=== PATIENT | female | born 1995 | race Two or more races ===

== ENCOUNTER 2017-04-24 09:27 | Emergency (ER) | payer MEDICAID ==
[~2017-04-24] VITALS: Ht 4267.2 cm; Wt 63.5 kg
--- NOTE | 2017-04-24 10:20 | NUR ---
PATIENT WA SEEN BY MD. WISAM MALIN. RENE TAPE APPLED TO AFFECTED FINGER AND RING FINGER TOGETHER. DC AND FOLLOW UP INSTRUCTIONS GIVEN AND EXPLAINED TO PATIENT WHO STATES SHE UNDERSTANDS ALL INSTRUCTIONS.
== END 2017-04-24 10:21 | disposition home or self-care (01) ==
LOC: ER 09:27
DX: S63.632A Sprain of interphalangeal joint of right middle finger, initial encounter (principal); G43.909 Migraine, unspecified, not intractable, without status migrainosus; W01.0XXA Fall on same level from slipping, tripping and stumbling without subsequent striking against object, initial encounter; Y93.89 Activity, other specified; Y92.9 Unspecified place or not applicable; Y99.9 Unspecified external cause status
CPT/HCPCS: 73140; 99284; A4663

== ENCOUNTER 2017-10-15 01:41 | Emergency (ER) | payer MEDICAID ==
[~2017-10-15] VITALS: Ht 170.2 cm; Wt 63.5 kg
[2017-10-15] MEDS ORDERED: CEPHALEXIN MONOHYDRATE 500 MG CAPSULE PO ONE (03:00)
[2017-10-15] MEDS ORDERED: predniSONE 50 MG TABLET PO ONE (03:00)
[2017-10-15] MEDS ORDERED: CEPHALEXIN MONOHYDRATE 500 MG CAPSULE ONE (03:38)
[2017-10-15] MEDS ORDERED: predniSONE 50 MG TABLET ONE (03:38)
--- NOTE | 2017-10-15 04:01 | NUR ---
Patient discharged to home in stable conditon. Written and verbal after care instructions given WITH RX. Patient verbalizes understanding of instructions.
== END 2017-10-15 04:03 | disposition home or self-care (01) ==
LOC: ER 01:44
DX: I88.9 Nonspecific lymphadenitis, unspecified (principal); F15.10 Other stimulant abuse, uncomplicated
CPT/HCPCS: 36415; 86403; A4663; J7512

== ENCOUNTER 2017-11-22 01:16 | Emergency (ER) | payer MEDICAID ==
[~2017-11-22] VITALS: Ht 170.2 cm; Wt 63.5 kg
--- NOTE | 2017-11-22 01:40 | NUR ---
TO ROOM 5 FOR ER EVAL
--- NOTE | 2017-11-22 02:10 | NUR ---
URINE SPECIMEN OBTAINED AND SENT TO LAB
[2017-11-22 02:22] LABS: *BILIRUBIN,URIN NEGATIVE (NEGATIVE); *BLOOD, URINE Trace-intact (NEGATIVE); *CLARITY,URINE CLEAR (CLEAR); *COLOR,URINE YELLOW (YELLOW); *KETONES,URINE NEGATIVE (NEGATIVE); *PROTEIN,URINE NEGATIVE (NEGATIVE); *UROBILINOGEN,URINE 0.2 E.U./dl (NORMAL); LEUKOCYTE ESTERASE ,URINE NEGATIVE (NEGATIVE); NITRITE, URINE NEGATIVE (NEGATIVE); UGLUCOSE NEGATIVE (NEGATIVE)
[2017-11-22 02:29] LABS: WBC,URINE 0-3 /HPF (0-3)
[2017-11-22 02:30] LABS: *URINE HCG, QUAL NEGATIVE (NEGATIVE); BACTERIA,URINE FEW /HPF (NONE SEEN); SQUAMOUS EPITHELIAL CELL,UR FEW /HPF (NONE SEEN)
--- NOTE | 2017-11-22 02:48 | NUR ---
Patient discharged to home in stable conditon. Written and verbal after care instructions given. Patient verbalizes understanding of instructions. Pt left ER and walks in steady gait.
[2017-11-22 02:49] VITALS: BP 110/56
[2017-11-24 07:06] LABS: *GC NAA Negative (Negative); *TRIC.VAG. NAA Negative (Negative)
== END 2017-11-22 02:51 | disposition home or self-care (01) ==
LOC: ER 01:16
DX: N89.8 Other specified noninflammatory disorders of vagina (principal)
CPT/HCPCS: 81001; 84703; 87086; 87491; 99284; A4663

== ENCOUNTER 2017-11-26 20:20 | Emergency (ER) | payer MEDICAID ==
[~2017-11-26] VITALS: Ht 170.2 cm; Wt 63.5 kg
--- NOTE | 2017-11-26 21:30 | NUR ---
Patient discharged to home in stable conditon. Written and verbal after care instructions given. Patient verbalizes understanding of instructions. Patient reported reduced anxiety pertaining to skin infection prior to discharge. Patient able to ambulate unassisted with steady gait. Patient left with all personal belongings.
[2017-11-26 21:39] VITALS: BP 118/72
== END 2017-11-26 21:30 | disposition home or self-care (01) ==
LOC: ER 20:22
DX: L01.00 Impetigo, unspecified (principal)
CPT/HCPCS: A4663

== ENCOUNTER 2018-02-20 15:14 | Emergency (ER) | payer MEDICAID ==
[~2018-02-20] VITALS: Ht 170.2 cm; Wt 63.5 kg
--- NOTE | 2018-02-20 15:20 | NUR ---
PT IS IN ROOM #1A, WAITING FOR DR JOLLY EVALUATION.
--- NOTE | 2018-02-20 16:50 | NUR ---
PT CAME OUT OF THE ROOM AN STARTERTED TO SCREAM TO THE DR JOLLY AND NURSES. PT WAS TOLD BY DR JOLLY THAT HE IS GOING TO SEE HER NEXT. PT WENT BACK TO HER ROOM #1A.
--- NOTE | 2018-02-20 17:08 | NUR ---
DR JOLLY EVALUATED THE PT.
[2018-02-20 17:24] VITALS: BP 126/79
--- NOTE | 2018-02-20 17:24 | NUR ---
PT WAS D/C TO HOME. D/C INSTRUCTIONS GIVEN TO THE PT.
== END 2018-02-20 17:26 | disposition home or self-care (01) ==
LOC: ER 15:14
DX: R06.00 Dyspnea, unspecified (principal)
CPT/HCPCS: A4663

== ENCOUNTER 2018-04-24 14:55 | Emergency (ER) | payer MEDICAID ==
[~2018-04-24] VITALS: Ht 170.2 cm; Wt 63.5 kg
--- NOTE | 2018-04-24 16:15 | NUR ---
Patient discharged to home in stable conditon. Written and verbal after care instructions given to patient. Patient verbalizes understanding of instructions.
== END 2018-04-24 16:17 | disposition home or self-care (01) ==
LOC: ER 14:58
DX: J02.9 Acute pharyngitis, unspecified (principal)
CPT/HCPCS: A4663

== ENCOUNTER 2018-05-31 23:46 | Emergency (ER) | payer MEDICAID ==
[~2018-05-31] VITALS: Ht 170.2 cm; Wt 65.8 kg
[2018-06-01 00:15] LABS: *URINE HCG, QUAL NEGATIVE (NEGATIVE)
[2018-06-01] MEDS ORDERED: PENICILLIN G BENZATHINE 2.4 MMU/4 ML DISP.SYRIN IM ONE ×2 (00:24→00:30)
--- NOTE | 2018-06-01 00:31 | NUR ---
Patient discharged to home in stable conditon. Written and verbal after care instructions given. Patient verbalizes understanding of instructions. Pt ambulated out of ER in steady gait. All belongings with pt. VSS. NAD noted.
[2018-06-01 00:35] VITALS: BP 109/76
== END 2018-06-01 00:36 | disposition home or self-care (01) ==
LOC: ER 23:50
DX: J02.9 Acute pharyngitis, unspecified (principal)
CPT/HCPCS: 84703; A4663

== ENCOUNTER 2018-10-27 09:44 | Emergency (ER) | payer MEDICAID ==
[~2018-10-27] VITALS: Ht 170.2 cm; Wt 65.8 kg
--- NOTE | 2018-10-27 10:18 | NUR ---
pt was evaluayed by dr arias. pt was d/c'D to home. d/c instructions given to the pt.
[2018-10-27 10:20] VITALS: BP 131/77
== END 2018-10-27 10:21 | disposition home or self-care (01) ==
LOC: ER 09:44
DX: L25.9 Unspecified contact dermatitis, unspecified cause (principal)
CPT/HCPCS: A4663

== ENCOUNTER 2018-11-09 15:15 | Emergency (ER) | payer MEDICAID ==
[~2018-11-09] VITALS: Ht 170.2 cm; Wt 70.3 kg
[2018-11-09] MEDS ORDERED: CEFTRIAXONE 1 G VIAL IM ONE (15:45)
[2018-11-09] MEDS ORDERED: LIDOCAINE HCL 2% 20 ML VIAL ONE (15:53)
[2018-11-09] MEDS ORDERED: CEFTRIAXONE 1 G VIAL ONE (15:53)
--- NOTE | 2018-11-09 15:58 | NUR ---
PT WAS EVALUATED BY DR SANDHU. PT WAS MEDICATED ACCORDING TO ER MD ORDERS. PT TOLERATTED TO MEDICATION WITHOUT COMPLICATIONS. PT WAS D/C'd TO HOME. D/C INSTRUCTIONS GIVEN TO THE PT.
[2018-11-09 16:00] VITALS: BP 136/81
== END 2018-11-09 16:01 | disposition home or self-care (01) ==
LOC: ER 15:17
DX: J02.9 Acute pharyngitis, unspecified (principal)
CPT/HCPCS: 96372; 99283; J0696; J3490; A4663

== ENCOUNTER 2019-02-16 19:56 | Emergency (ER) | payer MEDICAID ==
[~2019-02-16] VITALS: Ht 170.2 cm; Wt 70.3 kg
[2019-02-16] MEDS ORDERED: [UNRECOGNIZED DRUG - CODE] PO (20:19)
[2019-02-16 20:40] LABS: *BILIRUBIN,URIN NEGATIVE (NEGATIVE); *CLARITY,URINE SLIGHTLY CLOUDY (CLEAR); *COLOR,URINE YELLOW (YELLOW); *KETONES,URINE NEGATIVE (NEGATIVE); *UROBILINOGEN,URINE 0.2 E.U./dl (NORMAL); LEUKOCYTE ESTERASE ,URINE 2+ (NEGATIVE); NITRITE, URINE NEGATIVE (NEGATIVE); PH,URINE 7.5 (5.0-8.0); UGLUCOSE NEGATIVE (NEGATIVE)
[2019-02-16 20:41] LABS: *BLOOD, URINE TRACE (NEGATIVE)
[2019-02-16 20:42] LABS: *URINE HCG, QUAL NEGATIVE (NEGATIVE)
[2019-02-16 20:46] LABS: BACTERIA,URINE MODERATE /HPF (NONE SEEN); MUCUS,URINE MANY /LPF (0-FEW); SQUAMOUS EPITHELIAL CELL,UR MODERATE /HPF (NONE SEEN); WBC,URINE 50-80 /HPF (0-3)
--- NOTE | 2019-02-16 21:12 | NUR ---
Female international sales manager (CLARITZA PALACIOS) accompanied female patient for pelvic exam.
--- NOTE | 2019-02-16 21:55 | NUR ---
Patient discharged to home in stable conditon. Written and verbal after care instructions given. Patient verbalizes understanding of instructions. WALKED OUT OF ER WITH NO DISTRESS NOTED
[2019-02-16 21:56] VITALS: BP 117/77
[2019-02-18 23:10] LABS: *GC NAA Negative (Negative); *TRIC.VAG. NAA Negative (Negative)
== END 2019-02-16 21:57 | disposition home or self-care (01) ==
LOC: ER 19:56
DX: L73.9 Follicular disorder, unspecified (principal); N39.0 Urinary tract infection, site not specified; G43.909 Migraine, unspecified, not intractable, without status migrainosus; Z79.899 Other long term (current) drug therapy
CPT/HCPCS: 84703; 87077; 87086; 87491; A4663

== ENCOUNTER 2021-01-25 22:44 | Emergency (ER) | payer MEDICAID ==
[~2021-01-25] VITALS: Ht 170.2 cm; Wt 65.8 kg
[~2021-01-25 22:44] MED LIST: [UNRECOGNIZED DRUG - CODE] PO
--- NOTE | 2021-01-25 23:11 | NUR ---
Dr. Pardo at bedside for MSE.
--- NOTE | 2021-01-25 23:12 | NUR ---
Pt provided urine sample, sent to lab.
[2021-01-25] MEDS ORDERED: ONDANSETRON ODT 4 MG TAB.RAPDIS SL ONE (23:15)
[2021-01-25] MEDS ORDERED: ONDANSETRON ODT 4 MG TAB.RAPDIS ONE (23:23)
[2021-01-25 23:24] LABS: *URINE HCG, QUAL NEG (NEGATIVE)
--- NOTE | 2021-01-25 23:32 | NUR ---
Pt out of ER for CT.
--- NOTE | 2021-01-25 23:45 | NUR ---
Pt back to ER from CT.
[2021-01-26] MEDS ORDERED: ONDA8TAB65 PO (00:19)
[2021-01-26] MEDS ORDERED: ALPR0.5T8 PO (00:19)
--- NOTE | 2021-01-26 00:28 | NUR ---
Patient discharged to home in stable condition. Written and verbal after care instructions given. Patient verbalizes understanding of instructions. Stressed follow up or return to ER for worsening s/s. Pt out of ER with steady gait, no acute signs of distress, VSS, all belongings taken, provided with copies of lab and CT results.
[2021-01-26 00:29] VITALS: BP 124/75
== END 2021-01-26 00:29 | disposition home or self-care (01) ==
LOC: ER 22:48
DX: S06.0X1A Concussion with loss of consciousness of 30 minutes or less, initial encounter (principal); R40.2142 Coma scale, eyes open, spontaneous, at arrival to emergency department; R40.2252 Coma scale, best verbal response, oriented, at arrival to emergency department; R40.2362 Coma scale, best motor response, obeys commands, at arrival to emergency department; W01.0XXA Fall on same level from slipping, tripping and stumbling without subsequent striking against object, initial encounter; Y92.481 Parking lot as the place of occurrence of the external cause; G43.909 Migraine, unspecified, not intractable, without status migrainosus
CPT/HCPCS: 70450; 84703; A4663; Q0162

== ENCOUNTER 2021-02-02 05:12 | Emergency (ER) | payer MEDICAID ==
[~2021-02-02] VITALS: Ht 170.2 cm; Wt 65.8 kg
[~2021-02-02 05:12] MED LIST changes: +ALPR0.5T8 PO; +ONDA8TAB65 PO
--- NOTE | 2021-02-02 05:20 | NUR ---
Pt. arrived from home cc sore throat past 3 days. Pt has mild cough. Denies chest pain, sob. Pt smokes marijuana daily. Pt. was also diagnosed with uti that she has been taking antibiotics for.
[2021-02-02] MEDS ORDERED: CEFTRIAXONE 1 G VIAL ONE (05:45)
[2021-02-02] MEDS ORDERED: CEFTRIAXONE 1 G VIAL IM ONE (05:45)
[2021-02-02 05:46] LABS: *BILIRUBIN,URIN NEGATIVE (NEGATIVE); *BLOOD, URINE NEGATIVE (NEGATIVE); *CLARITY,URINE SLIGHTLY CLOUDY (CLEAR); *COLOR,URINE YELLOW (YELLOW); *KETONES,URINE NEGATIVE (NEGATIVE); *UROBILINOGEN,URINE 0.2 E.U./dl (NORMAL); LEUKOCYTE ESTERASE ,URINE NEGATIVE (NEGATIVE); NITRITE, URINE NEGATIVE (NEGATIVE); UGLUCOSE NEGATIVE (NEGATIVE)
[2021-02-02] MEDS ORDERED: LIDOCAINE HCL 1% 20 ML VIAL ONE (05:47)
[2021-02-02 05:54] VITALS: BP 110/65
--- NOTE | 2021-02-02 05:55 | NUR ---
Patient discharged to home in stable condition. Written and verbal after care instructions given. Patient verbalizes understanding of instructions. Stressed follow up or return to ER for worsening s/s. Vss. All belongings with pt.
[2021-02-02 05:59] LABS: *URINE HCG, QUAL NEGATIVE (NEGATIVE)
[2021-02-02 06:03] LABS: BACTERIA,URINE MANY /HPF (NONE SEEN); RBC,URINE 0-3 /HPF (0-3); SQUAMOUS EPITHELIAL CELL,UR MANY /HPF (NONE SEEN); WBC,URINE 0-3 /HPF (0-3)
== END 2021-02-02 05:55 | disposition home or self-care (01) ==
LOC: ER 05:14
DX: J02.9 Acute pharyngitis, unspecified (principal); S06.0X9D Concussion with loss of consciousness of unspecified duration, subsequent encounter; X58.XXXD Exposure to other specified factors, subsequent encounter
CPT/HCPCS: 84703; 96372; 99283; J0696; J3490; 87086; A4663

== ENCOUNTER 2021-03-12 14:37 | Emergency (ER) | payer MEDICAID ==
[~2021-03-12] VITALS: Ht 170.2 cm; Wt 65.8 kg
[2021-03-12] MEDS ORDERED: KETOROLAC TROMETHAMINE 30 MG INJ IVP ONE (16:00)
[2021-03-12 16:15] LABS: HEMATOCRIT 39.5 % (31.2-41.9); MEAN CORPUSCULAR HEMOGLOBIN 33.4 uug (24.7-32.8); MEAN CORPUSCULAR VOLUME 99.3 fL (75.5-95.3); PLATELET COUNT (AUTO) 256 K/uL (179-408)
[2021-03-12 16:15] LABS: *BILIRUBIN,URIN NEGATIVE (NEGATIVE); *BLOOD, URINE NEGATIVE (NEGATIVE); *CLARITY,URINE CLEAR (CLEAR); *COLOR,URINE YELLOW (YELLOW); *KETONES,URINE NEGATIVE (NEGATIVE); *UROBILINOGEN,URINE 0.2 E.U./dl (NORMAL); LEUKOCYTE ESTERASE ,URINE NEGATIVE (NEGATIVE); NITRITE, URINE NEGATIVE (NEGATIVE); UGLUCOSE NEGATIVE (NEGATIVE)
[2021-03-12 16:18] LABS: *URINE HCG, QUAL NEGATIVE (NEGATIVE)
[2021-03-12 16:36] LABS: CREATININE 0.8 mg/dL (0.6-1.3); POTASSIUM 4.1 mmol/L (3.5-5.1)
[2021-03-12 16:42] LABS: BILIRUBIN,DIRECT 0.2 mg/dL (0.0-0.2); BILIRUBIN,TOTAL 0.4 mg/dL (0.2-1.0); TOTAL PROTEIN, SERUM 6.9 g/dL (6.4-8.2)
[2021-03-12] MEDS ORDERED: KETOROLAC TROMETHAMINE 30 MG INJ ONE (16:46)
[2021-03-12] MEDS ORDERED: ALPR0.5T8 PO (20:18)
[2021-03-12] MEDS ORDERED: ALPR2TAB7 PO (20:49)
--- NOTE | 2021-03-12 21:11 | NUR ---
Patient discharged to home in stable condition. A/O x4, no SOB or labored breathing, afebrile. Denies any pain/discomfort at this time. Written and verbal after care instructions given. Patient verbalizes understanding of instructions. Stressed follow up or return to ER for worsening s/s. Steady gait. Picked up by family.
[2021-03-12 21:20] VITALS: BP 142/83
== END 2021-03-12 21:15 | disposition home or self-care (01) ==
LOC: ER 14:38
DX: R07.2 Precordial pain (principal); R00.2 Palpitations; R06.02 Shortness of breath; F41.9 Anxiety disorder, unspecified; G47.00 Insomnia, unspecified; Z76.0 Encounter for issue of repeat prescription; Z20.822 Contact with and (suspected) exposure to COVID-19
CPT/HCPCS: 36415; 71045; 80048; 80076; 81003; 84484 ×2; 84703; 85025; 85379; 87426; 93005 ×2; 96374; 99285; J1885; 70030-TC; A4663

== ENCOUNTER 2021-03-20 23:37 | Emergency (ER) | payer MEDICAID ==
[~2021-03-20] VITALS: Ht 170.2 cm; Wt 63.5 kg
[~2021-03-20 23:37] MED LIST changes: +ALPR2TAB7 PO
--- NOTE | 2021-03-21 00:15 | NUR ---
MD Giovany Villalpando in room to do MSE.
--- NOTE | 2021-03-21 00:23 | NUR ---
MD Giovany Villalpando in room to perform procedure with patient and RN Amarilys Nur as business development.
[2021-03-21] MEDS ORDERED: CEFTRIAXONE 500 MG VIAL IM ONE (00:30)
[2021-03-21] MEDS ORDERED: AZITHROMYCIN 250 MG TABLET PO ONE (00:30)
[2021-03-21] MEDS ORDERED: ONDANSETRON ODT 4 MG TAB.RAPDIS SL ONE (00:30)
[2021-03-21] MEDS ORDERED: AZITHROMYCIN 250 MG TABLET ONE (00:45)
[2021-03-21] MEDS ORDERED: LIDOCAINE HCL 1% 20 ML VIAL ONE (00:45)
[2021-03-21] MEDS ORDERED: CEFTRIAXONE 500 MG VIAL ONE (00:46)
[2021-03-21] MEDS ORDERED: ONDANSETRON ODT 4 MG TAB.RAPDIS ONE (00:46)
[2021-03-21 00:49] LABS: *BILIRUBIN,URIN NEGATIVE (NEGATIVE); *BLOOD, URINE NEGATIVE (NEGATIVE); *CLARITY,URINE CLEAR (CLEAR); *KETONES,URINE NEGATIVE (NEGATIVE); *UROBILINOGEN,URINE 0.2 E.U./dl (NORMAL); LEUKOCYTE ESTERASE ,URINE NEGATIVE (NEGATIVE); NITRITE, URINE NEGATIVE (NEGATIVE); PH,URINE 5.5 (5.0-8.0); UGLUCOSE NEGATIVE (NEGATIVE)
[2021-03-21 00:56] LABS: *COLOR,URINE STRAW (YELLOW)
[2021-03-21 01:02] LABS: *URINE HCG, QUAL NEGATIVE (NEGATIVE)
--- NOTE | 2021-03-21 01:02 | NUR ---
Patient resting upright on bed, no acute distress noted.
[2021-03-21] MEDS ORDERED: METR500T PO (01:22)
[2021-03-21] MEDS ORDERED: ALPR2TAB7 PO (01:22)
[2021-03-21 01:27] VITALS: BP 101/58
--- NOTE | 2021-03-21 01:27 | NUR ---
Patient discharged to home in stable condition. Written and verbal after care instructions given. Patient verbalizes understanding of instructions. Stressed follow up or return to ER for worsening s/s. Patient is ambulatory with steady gait, V/S stable, left with paper Rx, and left with all personal belongings.
[2021-03-23 06:06] LABS: *GC NAA Negative (Negative); *TRIC.VAG. NAA Negative (Negative)
== END 2021-03-21 01:27 | disposition home or self-care (01) ==
LOC: ER 23:40
DX: N76.0 Acute vaginitis (principal); F17.210 Nicotine dependence, cigarettes, uncomplicated; Z20.2 Contact with and (suspected) exposure to infections with a predominantly sexual mode of transmission; F43.10 Post-traumatic stress disorder, unspecified
CPT/HCPCS: 81003; 84703; 87210; 87491; 96372; 99283; 99406; J0696; J3490; A4663; Q0144; Q0162

== ENCOUNTER 2021-10-07 19:50 | Emergency (ER) | payer MEDICAID ==
[~2021-10-07] VITALS: Ht 170.2 cm; Wt 70.3 kg
[~2021-10-07 19:50] MED LIST changes: +METR500T PO
--- NOTE | 2021-10-07 21:10 | NUR ---
Dr. Hanks at bedside for MSE.
[2021-10-07] MEDS ORDERED: AZITHROMYCIN 250 MG TABLET PO ONE (21:15)
[2021-10-07] MEDS ORDERED: CEFTRIAXONE 500 MG VIAL IM ONE (21:15)
[2021-10-07] MEDS ORDERED: AZITHROMYCIN 250 MG TABLET ONE (21:32)
[2021-10-07] MEDS ORDERED: CEFTRIAXONE 500 MG VIAL ONE (21:32)
[2021-10-07] MEDS ORDERED: LIDOCAINE HCL 1% 20 ML VIAL ONE (21:33)
[2021-10-07 21:55] LABS: *URINE HCG, QUAL NEGATIVE (NEGATIVE)
[2021-10-07] MEDS ORDERED: PENICILLIN G BENZATHINE 2.4 MMU/4 ML DISP.SYRIN IM ONE ×2 (23:00→23:14)
[2021-10-07 23:31] VITALS: BP 135/77
--- NOTE | 2021-10-07 23:31 | NUR ---
Patient discharged to home in stable condition. Written and verbal after care instructions given. Patient verbalizes understanding of instructions. Stressed follow up or return to ER for worsening s/s.
[2021-10-07] MEDS ORDERED: ALPR2TAB7 PO (23:33)
== END 2021-10-07 23:36 | disposition home or self-care (01) ==
LOC: ER 19:51
DX: J02.0 Streptococcal pharyngitis (principal); B95.0 Streptococcus, group A, as the cause of diseases classified elsewhere; N76.0 Acute vaginitis; F41.9 Anxiety disorder, unspecified; Z76.0 Encounter for issue of repeat prescription; Z20.2 Contact with and (suspected) exposure to infections with a predominantly sexual mode of transmission; F17.200 Nicotine dependence, unspecified, uncomplicated
CPT/HCPCS: 84703; 86403; 87491; 96372 ×2; 99284; J0561; J0696; J3490; A4663; Q0144

== ENCOUNTER 2021-10-23 14:05 | Emergency (ER) | payer MEDICAID ==
[~2021-10-23] VITALS: Ht 170.2 cm; Wt 70.3 kg
--- NOTE | 2021-10-23 14:37 | NUR ---
PT IS IN ROOM #2B. DR INGRAM EVALUATED THE PT.
[2021-10-23] MEDS ORDERED: ACETAMINOPHEN ES 500 MG TABLET ONE (14:43)
[2021-10-23] MEDS ORDERED: ACETAMINOPHEN ES 500 MG TABLET PO ONE (14:45)
--- NOTE | 2021-10-23 15:13 | NUR ---
PT WAS D/C'd TO HOME. D/C INSTRUCTIONS GIVEN TO THE PT BY DR INGRAM.
[2021-10-23 15:14] VITALS: BP 121/78
== END 2021-10-23 15:15 | disposition home or self-care (01) ==
LOC: ER 14:05
DX: S06.0X9A Concussion with loss of consciousness of unspecified duration, initial encounter (principal); R40.2252 Coma scale, best verbal response, oriented, at arrival to emergency department; R40.2362 Coma scale, best motor response, obeys commands, at arrival to emergency department; R40.2142 Coma scale, eyes open, spontaneous, at arrival to emergency department; W18.2XXA Fall in (into) shower or empty bathtub, initial encounter; Y92.031 Bathroom in apartment as the place of occurrence of the external cause; F12.10 Cannabis abuse, uncomplicated; F43.10 Post-traumatic stress disorder, unspecified
CPT/HCPCS: 70450; A4663; A9150

== ENCOUNTER 2021-11-22 19:31 | Emergency (ER) | payer MEDICAID ==
[~2021-11-22] VITALS: Ht 170.2 cm; Wt 71.2 kg
--- NOTE | 2021-11-22 19:50 | NUR ---
Dr. Kai Villalpando at bedside MSE in progress.
[2021-11-22] MEDS ORDERED: ALPRAZOLAM 0.5 MG TABLET ONE (19:58)
[2021-11-22] MEDS ORDERED: IBUPROFEN 600 MG TABLET ONE (19:58)
[2021-11-22] MEDS ORDERED: ALPRAZOLAM 0.25 MG TABLET PO ONE (20:00)
[2021-11-22] MEDS ORDERED: IBUPROFEN 600 MG TABLET PO ONE (20:00)
--- NOTE | 2021-11-22 20:03 | NUR ---
Xray at bedside
--- NOTE | 2021-11-22 20:32 | NUR ---
Orthoglass split applied to patient's left foot. Pt tolerated procedure well.
[2021-11-22] MEDS ORDERED: ALPR1TAB2 PO ×2 (20:45→20:59)
[2021-11-22] MEDS ORDERED: OXYC-128 PO (20:45)
[2021-11-22] MEDS ORDERED: HYDR-4209 PO (20:59)
--- NOTE | 2021-11-22 21:11 | NUR ---
Patient discharged to home in stable condition. Written and verbal after care instructions given. Patient verbalizes understanding of instructions. Instructed not to drive, pt's rommate is taking her home. Crutches given and gait training complete. Pt able to ambulate steady on crutches. Denies pain at this time. Stressed follow up or return to ER for worsening s/s.
[2021-11-22 21:15] VITALS: BP 118/70
== END 2021-11-22 21:16 | disposition home or self-care (01) ==
LOC: ER 19:32
DX: S92.255A Nondisplaced fracture of navicular [scaphoid] of left foot, initial encounter for closed fracture (principal); W51.XXXA Accidental striking against or bumped into by another person, initial encounter; Y93.89 Activity, other specified; Y92.320 Baseball field as the place of occurrence of the external cause; F41.9 Anxiety disorder, unspecified; Z79.899 Other long term (current) drug therapy
CPT/HCPCS: 73590; 73610; A4663

== ENCOUNTER 2022-04-14 20:29 | Emergency (ER) | payer SELFPAY ==
[~2022-04-14 20:29] MED LIST changes: +ALPR1TAB2 PO; +HYDR-4209 PO
--- NOTE | 2022-04-14 21:30 | NUR ---
Patient was called to be triaged but was not present in the waiting room or outside of ER.
--- NOTE | 2022-04-14 22:05 | NUR ---
Patient was called to be triaged but was not present in the waiting room or outside of ER.
== END 2022-04-14 23:30 | disposition left against medical advice (07) ==
LOC: ER 20:30
DX: Z53.21 Procedure and treatment not carried out due to patient leaving prior to being seen by health care provider (principal)

== ENCOUNTER 2022-09-05 14:43 | Emergency (ER) | payer MEDICAID ==
[~2022-09-05] VITALS: Ht 170.2 cm; Wt 70.3 kg
[2022-09-05 15:23] LABS: *BILIRUBIN,URIN NEGATIVE (NEGATIVE); *CLARITY,URINE CLEAR (CLEAR); *COLOR,URINE DARK YELLOW (YELLOW); *KETONES,URINE 2+ (NEGATIVE); *UROBILINOGEN,URINE 0.2 E.U./dl (NORMAL); LEUKOCYTE ESTERASE ,URINE 1+ (NEGATIVE); NITRITE, URINE NEGATIVE (NEGATIVE); UGLUCOSE NEGATIVE (NEGATIVE)
[2022-09-05 15:25] LABS: *URINE HCG, QUAL NEG (NEGATIVE)
[2022-09-05 15:26] LABS: *BLOOD, URINE TRACE (NEGATIVE)
--- NOTE | 2022-09-05 15:43 | NUR ---
VAG EXAM DONE BY , CHAPERONED BY GHRN, SWAB SPECIMENS OBTAINED FOR ORDERED TESTS.
--- NOTE | 2022-09-05 15:44 | NUR ---
URINE SPECIMEN COLKLECTED AND SENT TO LAB.
[2022-09-05] MEDS ORDERED: DOXYCYCLINE HYCLATE 100 MG TABLET PO ONE (15:45)
[2022-09-05] MEDS ORDERED: DOXYCYCLINE HYCLATE 100 MG TABLET ONE (15:45)
[2022-09-05] MEDS ORDERED: METRONIDAZOLE 500 MG TABLET PO ONE (15:45)
[2022-09-05] MEDS ORDERED: CEFTRIAXONE 500 MG VIAL IM ONE (15:45)
[2022-09-05] MEDS ORDERED: CEFTRIAXONE 500 MG VIAL ONE (15:46)
[2022-09-05] MEDS ORDERED: METRONIDAZOLE 500 MG TABLET ONE (15:46)
[2022-09-05] MEDS ORDERED: DOXY100T2 PO (15:47)
[2022-09-05] MEDS ORDERED: METR500T PO (15:47)
[2022-09-05 16:32] LABS: BACTERIA,URINE MODERATE /HPF (NONE SEEN); RBC,URINE 0-3 /HPF (0-3); SQUAMOUS EPITHELIAL CELL,UR MANY /HPF (NONE SEEN)
[2022-09-08 03:06] LABS: *GC NAA Negative (Negative)
[2022-09-08 04:06] LABS: *TRIC.VAG. NAA Negative (Negative)
== END 2022-09-05 16:12 | disposition home or self-care (01) ==
LOC: ER 14:43
DX: N72 Inflammatory disease of cervix uteri (principal); Z20.2 Contact with and (suspected) exposure to infections with a predominantly sexual mode of transmission; Z87.440 Personal history of urinary (tract) infections; F41.9 Anxiety disorder, unspecified; Z79.899 Other long term (current) drug therapy; R01.1 Cardiac murmur, unspecified
CPT/HCPCS: 99284; 81001; 84703; 87210; 96372; 87040; 87491; 87070; J0696; A4663

== ENCOUNTER 2023-01-19 00:33 | Emergency (ER) | payer MEDICAID ==
[~2023-01-19] VITALS: Ht 170.2 cm; Wt 70.3 kg
[~2023-01-19 00:33] MED LIST changes: +DOXY100T2 PO
[2023-01-19] MEDS ORDERED: LORAZEPAM 1 MG TABLET ONE (01:24)
[2023-01-19] MEDS ORDERED: LORAZEPAM 0.5 MG TABLET PO ONE ×2 (01:30)
[2023-01-19 01:33] LABS: HEMATOCRIT 35.6 % (31.2-41.9); MEAN CORPUSCULAR HEMOGLOBIN 34.3 uug (24.7-32.8); MEAN CORPUSCULAR VOLUME 101.3 fL (75.5-95.3); PLATELET COUNT (AUTO) 263 K/uL (179-408)
[2023-01-19 01:37] LABS: CREATININE 0.9 mg/dL (0.6-1.3); POTASSIUM 3.9 mmol/L (3.5-5.1)
[2023-01-19] MEDS ORDERED: ACET1TAB23 PO (02:23)
[2023-01-19] MEDS ORDERED: HYDR25SU33 RC (02:23)
[2023-01-19 02:30] VITALS: BP 128/78
--- NOTE | 2023-01-19 02:30 | NUR ---
Patient discharged to home in stable condition. Written and verbal after care instructions given. Patient verbalizes understanding of instructions. Stressed follow up or return to ER for worsening s/s. PATIENT IS A/OX4, NAD NOTED. PATIENT AMBULATED WITH STEADY GAIT
[2023-01-19 02:49] LABS: ALANINE AMINOTRANSFERASE 17 U/L (14-59); ALKALINE PHOSPHATASE 67 U/L (50-136); ASPARTATE AMINOTRANSFERASE 15 U/L (15-37); BILIRUBIN,DIRECT < 0.1 mg/dL (0.0-0.2); BILIRUBIN,TOTAL 0.1 mg/dL (0.2-1.0); TOTAL PROTEIN, SERUM 6.5 g/dL (6.4-8.2)
[2023-01-19 02:59] LABS: *OCCULT BLOOD STOOL NEGATIVE (NEGATIVE)
== END 2023-01-19 02:31 | disposition home or self-care (01) ==
LOC: ER 00:42
DX: K62.5 Hemorrhage of anus and rectum (principal); K64.9 Unspecified hemorrhoids; F43.10 Post-traumatic stress disorder, unspecified; Z79.899 Other long term (current) drug therapy; Z79.2 Long term (current) use of antibiotics; X58.XXXA Exposure to other specified factors, initial encounter; Y93.89 Activity, other specified; Y92.89 Other specified places as the place of occurrence of the external cause; Y99.8 Other external cause status
CPT/HCPCS: 36415; 85025; A4663

== ENCOUNTER 2023-01-23 04:31 | Emergency (ER) | payer MEDICAID ==
[~2023-01-23] VITALS: Ht 170.2 cm; Wt 71.2 kg
[~2023-01-23 04:31] MED LIST changes: +ACET1TAB23 PO; +HYDR25SU33 RC
[2023-01-23] MEDS ORDERED: LIDOCAINE 1%-EPI 1:100,000 20 ML VIAL IJ ONE (05:00)
[2023-01-23] MEDS ORDERED: CEFTRIAXONE 500 MG VIAL IM ONE (05:00)
[2023-01-23] MEDS ORDERED: LIDOCAINE 1%-EPI 1:100,000 20 ML VIAL ONE (05:08)
[2023-01-23] MEDS ORDERED: CEFTRIAXONE 500 MG VIAL ONE (05:08)
[2023-01-23 05:09] LABS: *BILIRUBIN,URIN NEGATIVE (NEGATIVE); *CLARITY,URINE CLEAR (CLEAR); *COLOR,URINE YELLOW (YELLOW); *KETONES,URINE NEGATIVE (NEGATIVE); *UROBILINOGEN,URINE 0.2 E.U./dl (NORMAL); LEUKOCYTE ESTERASE ,URINE NEGATIVE (NEGATIVE); NITRITE, URINE NEGATIVE (NEGATIVE); UGLUCOSE NEGATIVE (NEGATIVE)
[2023-01-23 05:12] LABS: *BLOOD, URINE TRACE (NEGATIVE)
[2023-01-23] MEDS ORDERED: DOXY100T2 PO (06:11)
[2023-01-23] MEDS ORDERED: METR-147 PO (06:12)
[2023-01-23] MEDS ORDERED: DOXYCYCLINE HYCLATE 100 MG TABLET ONE (06:17)
--- NOTE | 2023-01-23 06:20 | NUR ---
Patient eloped from facility. ER physician Dr. Lizarraga notified.
[2023-01-23] MEDS: DOXYCYCLINE HYCLATE 100 MG TABLET PO ONE ×2 (06:29→07:27)
[2023-01-23 07:20] LABS: BACTERIA,URINE MODERATE /HPF (NONE SEEN); RBC,URINE 0-3 /HPF (0-3); SQUAMOUS EPITHELIAL CELL,UR MODERATE /HPF (NONE SEEN); WBC,URINE NONE SEEN /HPF (0-3)
--- NOTE | 2023-01-23 07:40 | NUR ---
Patient discharged to home in stable condition. Written and verbal after care instructions given. Patient verbalizes understanding of instructions. Stressed follow up or return to ER for worsening s/s. Patient walked out with steady gait.
== END 2023-01-23 07:48 | disposition home or self-care (01) ==
LOC: ER 04:31
DX: R30.0 Dysuria (principal); R10.2 Pelvic and perineal pain; Z79.2 Long term (current) use of antibiotics; Z79.899 Other long term (current) drug therapy
CPT/HCPCS: 99283; 81001; 84702; 36415; 96372; J0696; J3490; A4663

== ENCOUNTER 2023-06-02 16:16 | Emergency (ER) | payer MEDICAID ==
[~2023-06-02] VITALS: Ht 170.2 cm; Wt 72.6 kg
[~2023-06-02 16:16] MED LIST changes: +METR-147 PO
[2023-06-02] MEDS ORDERED: CEFTRIAXONE 500 MG VIAL IM ONE (17:00)
[2023-06-02] MEDS ORDERED: PENICILLIN G BENZATHINE 2.4 MMU/4 ML DISP.SYRIN IM ONE ×2 (17:00→17:21)
[2023-06-02] MEDS ORDERED: LIDOCAINE HCL 1% 20 ML VIAL ONE (17:21)
[2023-06-02] MEDS ORDERED: CEFTRIAXONE 500 MG VIAL ONE (17:21)
[2023-06-02 17:40] LABS: *BILIRUBIN,URIN NEGATIVE (NEGATIVE); *BLOOD, URINE NEGATIVE (NEGATIVE); *CLARITY,URINE CLEAR (CLEAR); *COLOR,URINE YELLOW (YELLOW); *KETONES,URINE NEGATIVE (NEGATIVE); *PROTEIN,URINE TRACE (NEGATIVE); *UROBILINOGEN,URINE 0.2 E.U./dl (NORMAL); LEUKOCYTE ESTERASE ,URINE NEGATIVE (NEGATIVE); NITRITE, URINE NEGATIVE (NEGATIVE); UGLUCOSE NEGATIVE (NEGATIVE)
[2023-06-02 17:52] LABS: *URINE HCG, QUAL NEGATIVE (NEGATIVE)
[2023-06-02 18:06] LABS: HIV-1 p24 ANTIGEN NON REACTIVE (NONREACTIVE); HIV-1/2 ANTIBODY NON REACTIVE (NONREACTIVE)
[2023-06-02] MEDS ORDERED: DOXY100T2 PO (18:56)
[2023-06-02] MEDS ORDERED: BUDE8.43 NS (19:24)
[2023-06-02 19:43] VITALS: BP 110/72; TEMP 98.5; O2SAT 100
[2023-06-04 02:06] LABS: *TRIC.VAG. NAA Negative (Negative)
[2023-06-04 06:06] LABS: *CHLAMYDIA NAA Negative (Negative); *GC NAA Negative (Negative)
== END 2023-06-02 19:59 | disposition home or self-care (01) ==
LOC: ER 16:19
DX: N76.0 Acute vaginitis (principal); R51.9 Headache, unspecified; R09.81 Nasal congestion; Z79.2 Long term (current) use of antibiotics; Z79.899 Other long term (current) drug therapy
CPT/HCPCS: 84703; 86592; 87210; 87491; 87536; 87806; A4606; A4663; J0561; J0696; J3490

== ENCOUNTER 2023-06-30 14:55 | Emergency (ER) | payer MEDICAID ==
[~2023-06-30] VITALS: Ht 170.2 cm; Wt 73.9 kg
[~2023-06-30 14:55] MED LIST changes: +BUDE8.43 NS
[2023-06-30 15:18] VITALS: O2SAT 98
== END 2023-06-30 16:26 | disposition home or self-care (01) ==
LOC: ER 14:57
DX: N76.0 Acute vaginitis (principal); B96.89 Other specified bacterial agents as the cause of diseases classified elsewhere; A60.00 Herpesviral infection of urogenital system, unspecified; Z79.2 Long term (current) use of antibiotics; Z79.899 Other long term (current) drug therapy
CPT/HCPCS: A4606; A4663

== ENCOUNTER 2023-10-03 23:36 | Emergency (ER) | payer MEDICAID, OTHER ==
[~2023-10-03] VITALS: Ht 170.2 cm; Wt 70.3 kg
[2023-10-04 00:19] LABS: BASOPHILS # (AUTO) 0.1 K/UL (0.0-0.2); EOSINOPHILS # (AUTO) 0.2 K/uL (0.0-0.7); EOSINOPHILS % (AUTO) 2.6 % (0.0-7.0); HEMATOCRIT 37.7 % (31.2-41.9); LYMPHOCYTES # (AUTO) 1.9 K/uL (0.8-4.8); LYMPHOCYTES % (AUTO) 28.5 % (20.5-51.5); MEAN CORPUSCULAR HEMOGLOBIN 34.9 uug (24.7-32.8); MEAN CORPUSCULAR HGB CONC 35 g/dL (32.3-35.6); MEAN CORPUSCULAR VOLUME 101.3 fL (75.5-95.3); MONOCYTES # (AUTO) 0.5 K/uL (0.1-1.30); MONOCYTES % (AUTO) 7.5 % (0.0-11.0); NEUTROPHILS % (AUTO) 60.4 % (38.5-71.5); PLATELET COUNT (AUTO) 439 K/uL (179-408); RED BLOOD CELL COUNT(AUTO) 3.72 MIL/uL (3.63-4.92); RED CELL DISTRIBUTION WIDTH 15.1 % (12.3-17.7); WHITE BLOOD COUNT (AUTO) 6.6 K/uL (3.8-11.8)
[2023-10-04 00:22] LABS: CALCIUM 8.5 mg/dL (8.5-10.1)
[2023-10-04 00:25] LABS: DIFFERENTIAL COMMENT 1
[2023-10-04 00:28] LABS: ALBUMIN 3.4 g/dL (3.4-5.0); BILIRUBIN,TOTAL 0.3 mg/dL (0.2-1.0)
[2023-10-04 00:46] LABS: *BILIRUBIN,URIN NEGATIVE (NEGATIVE); *CLARITY,URINE CLEAR (CLEAR); *COLOR,URINE YELLOW (YELLOW); *KETONES,URINE NEGATIVE (NEGATIVE); *PROTEIN,URINE NEGATIVE (NEGATIVE); *UROBILINOGEN,URINE 0.2 E.U./dl (NORMAL); LEUKOCYTE ESTERASE ,URINE NEGATIVE (NEGATIVE); NITRITE, URINE NEGATIVE (NEGATIVE); PH,URINE 6.5 (5.0-8.0); UGLUCOSE NEGATIVE (NEGATIVE)
[2023-10-04 00:55] LABS: *AMPHETAMINE, URINE NEGATIVE (NEGATIVE); *BARBITURATE, URINE NEGATIVE (NEGATIVE); *BENZODIAZEPINE, URINE NEGATIVE (NEGATIVE); *BLOOD, URINE NEGATIVE (NEGATIVE); *CANNABINOID, URINE POSITIVE (NEGATIVE); *COCCAINE, URINE POSITIVE (NEGATIVE); *OPIATE, URINE NEGATIVE (NEGATIVE); *PHENCYCLIDINE SCREEN,URINE NEGATIVE (NEGATIVE); *URINE HCG, QUAL NEGATIVE (NEGATIVE); FENTANYL, URINE NEGATIVE (NEGATIVE)
[2023-10-04] MEDS ORDERED: HYDR25SU33 RC (02:05)
[2023-10-04 02:10] VITALS: BP 122/62; TEMP 98.1; O2SAT 98
== END 2023-10-04 02:11 | disposition home or self-care (01) ==
LOC: ER 23:39
DX: K64.9 Unspecified hemorrhoids (principal); K62.5 Hemorrhage of anus and rectum; F17.200 Nicotine dependence, unspecified, uncomplicated; R10.2 Pelvic and perineal pain; Z79.899 Other long term (current) drug therapy; Z60.2 Problems related to living alone
CPT/HCPCS: 36415; 84703; 85025; A4606; A4663

== ENCOUNTER 2023-12-05 20:39 | Emergency (ER) | payer OTHER | END 2023-12-05 21:41 | disposition left against medical advice (07) | LOC: ER 20:45 | DX: R68.89 Other general symptoms and signs (principal); Z53.21 Procedure and treatment not carried out due to patient leaving prior to being seen by health care provider ==